=== PATIENT | male | born 1965 | race Hispanic/Latino ===

== ENCOUNTER 2017-12-02 10:06 | Outpatient (CLI) | payer OTHER ==
--- NOTE | 2017-12-02 23:17 | XRay Report ---
FINAL REPORT PROCEDURE: XR HIPS BILAT 2V W/PELVIS TECHNIQUE: Bilateral hip radiographs, 2 views each, including AP view of the pelvis. HISTORY: Arthritis. COMPARISON: No prior studies are available for comparison. FINDINGS: Fracture (s) and/or Dislocation(s): None . Joint space(s): Mild narrowing of the bilateral hip joints and osteophytes. Soft tissues: Pelvic phleboliths Bone mineralization: Normal. Foreign bodies: None. IMPRESSION: Mild degenerative changes of the hips. No radiographic evidence of displaced fracture.
== END 2017-12-02 10:07 | disposition home or self-care (01) ==
LOC: XRAY 10:06
PROVIDERS: ATTEND Internal Medicine
DX: M16.0 Bilateral primary osteoarthritis of hip (principal); Z88.0 Allergy status to penicillin; Z91.010 Allergy to peanuts
CPT/HCPCS: 73521

== ENCOUNTER → 2017-12-16 | Outpatient (CLI) | payer OTHER ==
--- NOTE | 2017-12-17 07:50 | XRay Report ---
BILATERAL KNEE RADIOGRAPHS INDICATION: Bilateral knee pain, arthritis. COMPARISON: None similar. FINDINGS: AP and lateral views of both knees obtained. RIGHT KNEE: Medial compartment hemiarthroplasty and tibial medullary darian noted. Intact overall articulation. Mild degenerative changes as spurring. No significant suprapatellar effusion. LEFT KNEE: Medial compartment hemiarthroplasty, though the tibial plateau component appears slightly lower with approximately 4 mm vertical gap between the arthroplasty components as compared to approximately 1 mm on the right. No periprosthetic lucency. Lateral and patellofemoral compartment degenerative changes with moderate superior and inferior patellar articular poles degenerative spurring. No suprapatellar effusion. CONCLUSION: Bilateral knee degenerative and postsurgical changes, as detailed above. Clinical/orthopedic correlation suggested. Thank you for the opportunity to participate in this patient's care.
== END | disposition home or self-care (01) ==
LOC: XRAY 09:57
PROVIDERS: ATTEND Internal Medicine
DX: Z02.71 Encounter for disability determination (principal); M17.0 Bilateral primary osteoarthritis of knee; Z88.0 Allergy status to penicillin; Z91.010 Allergy to peanuts; Z98.890 Other specified postprocedural states